=== PATIENT | female | born 1975 | race Caucasian/White ===

== ENCOUNTER 2017-11-04 20:13 | Emergency (ER) | payer OTHER ==
[2017-11-04 20:25] VITALS: BP 112/71
--- NOTE | 2017-11-04 20:50 | UC ---
Skin Complaint HPI - HPI Summary HPI Summary: large rash with bulls eye appearance on back of left calf---has been in [facility] for 3 weeks----does not remember a tick bite - History of Current Complaint Chief Complaint: UCRash Time Seen by Provider: 11/04/17 20:29 Stated Complaint: RASH Hx Obtained From: Patient Hx Last Menstrual Period: Now ?: No Onset/Duration: Sudden Onset, Lasting Days - 2, Still Present Onset Severity: Mild Current Severity: Mild Location: Discrete - back of left calf Character: Redness Aggravating Factor(s): Nothing Alleviating Factor(s): Nothing Associated Signs & Symptoms: Positive: Negative - Allergy/Home Medications Allergies/Adverse Reactions: Allergies Allergy/AdvReac Type Severity Reaction Status Date / Time No Known Allergies Allergy Verified 11/04/17 20:25 Review of Systems Constitutional: Negative Skin: Rash - with circular areas of clearing posterior left lower leg Eyes: Negative ENT: Negative Respiratory: Negative Cardiovascular: Negative Gastrointestinal: Negative Genitourinary: Negative Motor: Negative Neurovascular: Negative Musculoskeletal: Negative Neurological: Negative Psychological: Negative Is Patient Immunocompromised?: No All Other Systems Reviewed And Are Negative: Yes PMH/Surg Hx/FS Hx/Imm Hx Previously Healthy: Yes - Surgical History Surgical History: None - Family History Known Family History: Positive: None - Social History Occupation: Employed Full-time Lives: With Family Alcohol Use: Weekly Substance Use Type: None Smoking Status (MU): Never Smoked Tobacco Physical Exam Triage Information Reviewed: Yes Appearance: Well-Appearing, No Pain Distress, Well-Nourished Vital Signs: Initial Vital Signs Temp 99.2 F 11/04/17 20:21 Pulse 67 11/04/17 20:21 Resp 16 11/04/17 20:21 BP 112/71 11/04/17 20:21 Pulse Ox 100 11/04/17 20:21 Vital Signs Reviewed: Yes Eye Exam: Normal Eyes: Positive: Conjunctiva Clear ENT Exam: Normal ENT: Positive: Normal ENT inspection, Hearing grossly normal. Negative: Trismus , Muffled voice, Hoarse voice Dental Exam: Normal Neck exam: Normal Neck: Positive: Supple, Nontender Respiratory Exam: Normal Respiratory: Positive: Chest non-tender, No respiratory distress, No accessory muscle use Cardiovascular Exam: Normal Cardiovascular: Positive: RRR, Pulses Normal, Brisk Capillary Refill Musculoskeletal Exam: Normal Musculoskeletal: Positive: Strength Intact, ROM Intact, No Edema Neurological Exam: Normal Neurological: Positive: Alert, Muscle Tone Normal Psychological Exam: Normal Skin Exam: Normal Skin: Positive: Other - 10x12 cm bull's eye rash left calf Course/Dx - Course Course Of Treatment: doxycycline, lab studies, follow with pcp in [place] - Diagnoses Provider Diagnoses: erythema migranes left calf Discharge - Sign-Out/Discharge Documenting (check all that apply): Patient Departure - Discharge Plan Condition: Stable Disposition: HOME Prescriptions: DOXYcycline CAP(*) [DOXYcycline 100MG CAP(*)] 100 mg PO BID #42 cap Patient Education Materials: Lyme Disease (ED), Tick Bite (ED) Referrals: [facility] [Outside] - If Needed Additional Instructions: Follow with provider in [place] upon your return - Billing Disposition and Condition Condition: STABLE Disposition: Home
[2017-11-04] MEDS ORDERED: DOXYcycline CAP(*) 100 MG PO ONE (21:00)
[2017-11-04] MEDS ORDERED: Ondansetron ODT TAB* 4 MG PO ONE (21:21)
== END 2017-11-04 21:37 | disposition home or self-care (01) ==
LOC: UCEAST 20:13
DX: A26.0 Cutaneous erysipeloid (principal)
CPT/HCPCS: 99202; A9270-GY; G0463